=== PATIENT | female | born 1975 | race African-American/Black ===

== ENCOUNTER 2021-11-14 14:59 | Emergency (ER) | payer MEDICARE, OTHER ==
[~2021-11-14] VITALS: Ht 160 cm; Wt 45.5 kg
[~2021-11-14 14:59] MED LIST: CARV3.123 PO; CYCL5TAB PO; FERR325T14 PO; FURO20TA3 PO; FURO40TA4 PO; IBUP-1007 PO; LACT10SO35 PO; LOSA-73 PO; POTA10TA12 PO
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
[2021-11-14] MEDS ORDERED: HYDROcodone/APAP 5/325MG 1 TAB TABLET PO ONE (16:00)
[2021-11-14 16:13] LABS: BILIRUBIN,URINE NEGATIVE (NEG); CLARITY,URINE CLEAR; COLOR,URINE YELLOW; NITRITE,URINE NEGATIVE (NEG); PROTEIN,URINE NEGATIVE (NEG-TRACE)
[2021-11-14 16:18] LABS: BACTERIA,URINE FEW /HPF (0-FEW); RBC,URINE 0 /HPF (0-2)
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
[2021-11-14] MEDS ORDERED: CEPH500C PO (16:52)
[2021-11-14 16:55] VITALS: BP 142/99
== END 2021-11-14 17:03 | disposition home or self-care (01) ==
LOC: ER 14:59
DX: R51.9 Headache, unspecified (principal); M54.50 Low back pain, unspecified; N30.00 Acute cystitis without hematuria; R42 Dizziness and giddiness; F17.200 Nicotine dependence, unspecified, uncomplicated; G89.11 Acute pain due to trauma; I11.0 Hypertensive heart disease with heart failure; I50.9 Heart failure, unspecified; Z98.890 Other specified postprocedural states; V49.59XA Passenger injured in collision with other motor vehicles in traffic accident, initial encounter; Y93.89 Activity, other specified; Y92.488 Other paved roadways as the place of occurrence of the external cause; Y99.8 Other external cause status
CPT/HCPCS: 70450; 72100; 72125; 81001; 81025; 87077; 87086; 87186; 99285-25